=== PATIENT | female | born 1995 | race Asian ===

== ENCOUNTER → 2017-07-19 | Outpatient (CLI) | payer OTHER ==
[2017-07-21 14:59] LABS: QUANTIF TB AG-NIL <0.00 IU/ML; QUANTIFERON NIL 0.34 IU/ML
== END | disposition home or self-care (01) ==
LOC: C.LABSPEC 12:46
PROVIDERS: ATTEND Family Medicine
DX: Z11.3 Encounter for screening for infections with a predominantly sexual mode of transmission (principal); Z11.1 Encounter for screening for respiratory tuberculosis